=== PATIENT | male | born 1940 ===

== ENCOUNTER 2017-06-06 16:00 | Emergency (ER) | payer BC, OTHER ==
[2017-06-06 16:22] VITALS: BP 134/57
[2017-06-06] MEDS ORDERED: Acetaminophen TAB* 325 MG PO ONE (17:01)
--- NOTE | 2017-06-06 17:46 | RAD ---
Indication: Prepatellar swelling post fall. Question patellar fracture. Comparison: None. Technique: RIGHT knee: AP, tunnel, lateral, sunrise views. Report: Anterior soft tissue swelling. Negative for joint effusion or fracture. Mild osteophytosis and moderate lateral patellofemoral and slight medial joint space narrowing. Mild lateral subluxation of the patella relative to the femoral trochlea which may be chronic. IMPRESSION: 1. Negative for joint effusion or fracture. 2. 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 3. Mild lateral subluxation of the patella relative to the femoral trochlea which may be chronic.
--- NOTE | 2017-06-06 17:56 | UC ---
Knee Pain HPI - HPI Summary HPI Summary: fall tonight from standing position onto ground, no skin abrasions, noted mild pain with immediate swelling, increased in amount extending from top of knee to medial / upper thigh. h/o generalized arthritis with no prior knee injuries. no fever, chills, redness. - History of Current Complaint Hx Obtained From: Patient Onset/Duration: Sudden Onset, Lasting Hours Severity Initially: Moderate Severity Currently: Moderate <Nya Wall - Last Filed: 06/06/17 22:23> <Isha Vicente - Last Filed: 06/08/17 08:06> - History of Current Complaint Chief Complaint: UCLowerExtremity Stated Complaint: KNEE INJURY Time Seen by Provider: 06/06/17 17:23 - Allergies/Home Medications Allergies/Adverse Reactions: Allergies Allergy/AdvReac Type Severity Reaction Status Date / Time No Known Allergies Allergy Verified 06/06/17 16:16 Home Medications: Home Medications Gabapentin CAP(*) [Neurontin 300 CAP(*)] 300 mg PO TID 06/06/17 [History Confirmed 06/06/17] Hydrochlorothiazide TAB* [Hydrodiuril TAB*] 25 mg PO DAILY 06/06/17 [History Confirmed 06/06/17] Ramipril CAP* [Altace CAP*] 5 mg PO DAILY 06/06/17 [History Confirmed 06/06/17] PMH/Surg Hx/FS Hx/Imm Hx Previously Healthy: No - generalized OA, neuropathy - Surgical History Surgical History: None Surgery Procedure, Year, and Place: laminectomy - Social History Alcohol Use: Weekly Substance Use Type: None Smoking Status (MU): Former Smoker <Nya Wall - Last Filed: 06/06/17 22:23> Review of Systems Musculoskeletal: Decreased ROM, Edema Is Patient Immunocompromised?: No All Other Systems Reviewed And Are Negative: Yes <Nya Wall - Last Filed: 06/06/17 22:23> Physical Exam Triage Information Reviewed: Yes Appearance: Well-Appearing, No Pain Distress, Well-Nourished Vital Signs: Initial Vital Signs Temp 98 F 06/06/17 16:19 Pulse 68 06/06/17 16:19 Resp 16 06/06/17 16:19 BP 134/57 06/06/17 16:19 Pulse Ox 100 06/06/17 16:19 Eyes: Positive: Conjunctiva Clear Musculoskeletal: Positive: Strength Intact, ROM Intact, No Edema, Edema @ - pre- patellar swelling with mild extension into the medial aspect, no ecchymosis, no warmth, no erythema, mild tenderness with palpation., Other: - neg ACL, PCL testing, no instabl/ pain with shorty/ jeramie stresses, neg apley. no posterior knee pain. able to ambulate without difficulty. Psychological Exam: Normal Skin Exam: Normal <Nya Wall - Last Filed: 06/06/17 22:23> Vital Signs: Initial Vital Signs Temp 98 F 06/06/17 16:19 Pulse 68 06/06/17 16:19 Resp 16 06/06/17 16:19 BP 134/57 06/06/17 16:19 Pulse Ox 100 06/06/17 16:19 <Isha Vicente - Last Filed: 06/08/17 08:06> Knee Pain Course/Dx - Course Course Of Treatment: radiograph- neg for fracture, pre-patellar bursitis treat conservatively with ice, elevation, LAUREN wrapping, follow up with ortho - Differential Dx/Diagnosis Differential Diagnosis/HQI/PQRI: Foreign Body, Fracture (Closed), Fracture (Open ) Provider Diagnoses: pre-patellar bursitis. <Nya Wall - Last Filed: 06/06/17 22:23> Discharge <Nya Wall - Last Filed: 06/06/17 22:23> <Isha Vicente - Last Filed: 06/08/17 08:06> - Discharge Plan Condition: Good Disposition: HOME Patient Education Materials: Knee Bursitis (ED) Referrals: Jong Grande MD [Medical Doctor] - Nabil Mendez MD [Primary Care Provider] - Additional Instructions: - knee X-ray negative - Wrap knee tightly with LAUREN wrap - FOllow up with ortho if no improvement within 24-48 hours - MOtrin/ tylenol as needed for pain - Motrin for 24 hours to help decrease swelling Altered Mental Statu Course/Dx <Nya Wall - Last Filed: 06/06/17 22:23> - Course Course Of Treatment: radiograph- neg for fracture, pre-patellar bursitis treat conservatively with ice, elevation, LAUREN wrapping, follow up with ortho <Isha Vicente - Last Filed: 06/08/17 08:06> - Diagnoses Discharge Diagnoses: Prepatellar bursitis Attestation Statement User Type: Provider - I was available for consult. This patient was seen by the ADRIANE. The patient was not presented to, seen by, or examined by me. -Christian <Isha Vicente - Last Filed: 06/08/17 08:06>
== END 2017-06-06 18:06 | disposition home or self-care (01) ==
LOC: UCEAST 16:00
DX: M70.41 Prepatellar bursitis, right knee (principal); Y93.9 Activity, unspecified; M17.11 Unilateral primary osteoarthritis, right knee
CPT/HCPCS: 99212; A9270-GY; G0463

== ENCOUNTER 2017-09-12 08:21 | Emergency (ER) | payer BC, OTHER ==
[2017-09-12 08:43] VITALS: BP 105/46
--- NOTE | 2017-09-12 09:34 | UC ---
Truncal Trauma HPI - HPI Summary HPI Summary: 77 yo male fell and injured left ribs 2 days ago no SOB no abd pain no near syncope or syncope - History Of Current Complaint Chief Complaint: UCGeneralIllness Stated Complaint: FELL RIB INJURY Time Seen by Provider: 09/12/17 08:57 Hx Obtained From: Patient Onset/Duration: Sudden Onset Severity Initially: Severe Severity Currently: Moderate Pain Intensity: 4 Pain Scale Used: 0-10 Numeric Mechanism Of Injury: Fall From A Standing Position Aggravating Factor(s): Deep Breathing, Cough Alleviating factor(s): Rest Associated Signs And Symptoms: Positive: Chest Pain - Allergies/Home Medications Allergies/Adverse Reactions: Allergies Allergy/AdvReac Type Severity Reaction Status Date / Time No Known Allergies Allergy Verified 09/12/17 08:33 Home Medications: Home Medications Amoxicillin/Clavulanate TAB* [Augmentin TAB 875*] 1 tab PO BID 09/12/17 [ History Confirmed 09/12/17] Atorvastatin* [Lipitor 10 MG*] 1 tab PO DAILY 09/12/17 [History Confirmed ] Multivitamin [One Daily] 1 tab PO DAILY 09/12/17 [History Confirmed 09/12/17] PMH/Surg Hx/FS Hx/Imm Hx Previously Healthy: Yes Cardiovascular History: Hypertension - Surgical History Surgical History: None Surgery Procedure, Year, and Place: laminectomy - Family History Known Family History: Positive: Hypertension - Social History Alcohol Use: Weekly Substance Use Type: None Smoking Status (MU): Former Smoker Length of Time of Smoking/Using Tobacco: quit 1979 Review of Systems Constitutional: Negative Skin: Negative Eyes: Negative ENT: Negative Respiratory: Negative Cardiovascular: Chest Pain Gastrointestinal: Negative Genitourinary: Negative Motor: Negative Neurovascular: Negative Musculoskeletal: Negative Neurological: Negative Psychological: Negative Is Patient Immunocompromised?: No All Other Systems Reviewed And Are Negative: Yes Physical Exam Triage Information Reviewed: Yes Appearance: Well-Appearing, No Pain Distress, Well-Nourished Vital Signs: Initial Vital Signs Temp 98.6 F 09/12/17 08:36 Pulse 61 09/12/17 08:36 Resp 18 09/12/17 08:36 BP 105/46 09/12/17 08:36 Pulse Ox 97 09/12/17 08:36 Vital Signs Reviewed: Yes Eyes: Positive: Conjunctiva Clear ENT: Positive: Hearing grossly normal, Uvula midline. Negative: Nasal congestion, Nasal drainage, Trismus, Muffled voice Neck: Positive: Supple, Nontender, No Lymphadenopathy Respiratory: Positive: Lungs clear, Normal breath sounds, No respiratory distress, No accessory muscle use. Negative: Chest non-tender - tender as noted Cardiovascular: Positive: RRR, No Murmur Abdomen Description: Positive: Nontender, No Organomegaly. Negative: CVA Tenderness (R), CVA Tenderness (L) Musculoskeletal: Positive: ROM Intact, No Edema Neurological: Positive: Alert Psychological Exam: Normal Skin Exam: Normal Diagnostics - Radiology No standard instances Xray Interpretation: Positive (See Comments) - Minimally displaced fractures involving the lateral left seventh, eighth and ninth ribs Radiology Interpretation Completed By: Radiologist Truncal Trauma Course/Dx - Differential Dx/Diagnosis Provider Diagnoses: mulitple rib fractures. 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 It may be a enchondroma. I suggest you see an orthopedist for his opinion.) Andrea MORAN,Nabil Sanon [Primary Care Provider] - 1 Week (re rib fractures) Additional Instructions: recheck with your MD in 1-2 weeks suggest orthopedic referral to confirm lesion in your left humerus is benign Images Front/Back of Body, Lg ([place]): 1 - tender
--- NOTE | 2017-09-12 09:35 | RAD ---
INDICATION: Left lateral rib pain for days after a fall COMPARISON: None. TECHNIQUE: 4 views of the left ribs were obtained. FINDINGS: Involving the lateral left seventh, eighth and ninth ribs there are minimally displaced rib fractures most severely affecting the eighth rib. Remaining visualized bones are intact and appropriately aligned. There is no pneumothorax. IMPRESSION: Minimally displaced fractures involving the lateral left seventh, eighth and ninth ribs.
== END 2017-09-12 10:05 | disposition home or self-care (01) ==
LOC: UCEAST 08:21
DX: S22.42XA Multiple fractures of ribs, left side, initial encounter for closed fracture (principal); W19.XXXA Unspecified fall, initial encounter; Y93.9 Activity, unspecified; Y92.9 Unspecified place or not applicable; I10 Essential (primary) hypertension; Z87.891 Personal history of nicotine dependence
CPT/HCPCS: 99211; G0463